=== PATIENT | male | born 1960 | race African-American/Black ===

== ENCOUNTER 2024-07-04 15:22 | Emergency (ER) | payer MEDICAID ==
[~2024-07-04] VITALS: Ht 182.9 cm; Wt 87.0 kg
[2024-07-04 15:28] VITALS: BP 106/66; PULSE 80; RESP 18; TEMP 37.2; O2SAT 99
== END 2024-07-04 21:24 | disposition left against medical advice (07) ==
LOC: ER 15:22
DX: R53.1 Weakness (principal)
CPT/HCPCS: 99283